=== PATIENT | male | born 1980 | race Caucasian/White ===

== ENCOUNTER 2018-08-27 10:42 | Emergency (ER) | payer OTHER ==
[~2018-08-27] VITALS: Ht 177.8 cm; Wt 122.5 kg
[~2018-08-27 10:42] MED LIST: FLONASE 0.05%50 MCG NASAL; PREDNISONE 20 M20 M1 PO; SINGULAIR 10 MG10 M1; SYMBICORT160 MCG/4.; VALTREX1000 MG PO
[2018-08-27] MEDS ORDERED: METFORMIN HCL500 MG PO (10:51)
[2018-08-27] MEDS ORDERED: PRAVACHOL20 MG PO (10:51)
[2018-08-27] MEDS ORDERED: VIAGRA25 MG PO (10:52)
[2018-08-27] MEDS ORDERED: KEFLEX500 M1 PO (10:58)
[2018-08-27 11:30] VITALS: BP 140/101
== END 2018-08-27 11:36 | disposition home or self-care (01) ==
LOC: M.ERS 10:42
DX: S61.011A Laceration without foreign body of right thumb without damage to nail, initial encounter (principal); E78.00 Pure hypercholesterolemia, unspecified; E11.9 Type 2 diabetes mellitus without complications; J45.909 Unspecified asthma, uncomplicated; W26.8XXA Contact with other sharp object(s), not elsewhere classified, initial encounter; Y93.89 Activity, other specified; Y92.89 Other specified places as the place of occurrence of the external cause; Y99.8 Other external cause status